=== PATIENT | male | born 1990 | race African-American/Black ===

== ENCOUNTER 2021-04-23 11:03 | Emergency (ER) | payer SELFPAY ==
[2021-04-23 11:23] VITALS: BP 143/93; PULSE 112; RESP 19; TEMP 36.8; O2SAT 100
[2021-04-23 12:13] VITALS: BP 134/95; PULSE 79; RESP 16; TEMP 36.6; O2SAT 100
--- NOTE | 2021-04-23 12:17 | PC.NURSE ---
Patient reports that he has had a small area of swelling to the right brow that has been present for at least a year but was small and did not cause any problems for the patient. severe increase in pain and swelling reported.
--- NOTE | 2021-04-23 12:49 | ED.SKABFB ---
HPI - Skin/Abscess/Foreign Bdy General Chief complaint: Skin/Abscess/Foreign Body Stated complaint: Wound Right Eye Time Seen by Provider: 04/23/21 12:07 Source: patient Mode of arrival: ambulatory Limitations: no limitations History of Present Illness HPI narrative: This is a 30-year-old male that presents to the emergency department for cyst over the right eyebrow present over the last year. Reports over the last couple of days the area has become painful, more swollen and red. He has not seen anybody for this yet. Denies fever, vision changes, redness of the eye, or purulent discharge from the eye. Related Data Allergies Allergy/AdvReac Type Severity Reaction Status Date / Time No Known Allergies Allergy Verified 04/23/21 11:26 Review of Systems Review of Systems: Narrative: CONSTITUTIONAL: Denies fever EYES: Denies visual changes, redness, or discharge. All systems reviewed & are unremarkable except as noted in HPI and below PMFSH Past Medical History Medical History (Updated 04/23/21 @ 13:50 by Krystina Roe PA-C) History of hypertension Social History Social History (Updated 04/23/21 @ 12:51 by Krystina Roe PA-C) Substance use: never Exam Narrative: Exam Narrative: GENERAL: Well-appearing, well-nourished, and in no acute distress. HEAD: Normocephalic, atraumatic. 2cm area of redness over the right eyebrow, with mobile cystic lesion that is tender to palpation EYES: PERRLA and EOMI. No conjunctival injection or abnormal discharge. No swelling of the eyelids ENT: Nares clear, no rhinorrhea or epistaxis. Mucous membranes moist. Oropharynx without tonsillar hypertrophy exudate or other lesions. Bilateral TMs pearly macdonald non-bulging NECK: Supple. No adenopathy or masses. CHEST: Clear to auscultation. No respiratory distress. No wheezes rales or rhonchi HEART: Regular rate and rhythm. No murmur heard. Normal peripheral pulses. EXTREMITIES: Normal range of motion. No edema. SKIN: Warm, dry, no rash. NEURO: No focal deficits. Alert and oriented x3. PSYCH: Normal mood and affect Course Vital Signs Vital signs: Vital Signs Temperature 98.2 F 04/23/21 11:23 Pulse Rate 112 H 04/23/21 11:23 Respiratory Rate 19 04/23/21 11:23 Blood Pressure 143/93 H 04/23/21 11:23 Pulse Oximetry 100 04/23/21 11:23 Temperature 97.9 F 04/23/21 12:13 Pulse Rate 79 04/23/21 12:13 Respiratory Rate 16 04/23/21 12:13 Blood Pressure 134/95 H 04/23/21 12:13 Pulse Oximetry 100 04/23/21 12:13 Procedures Abscess I/D face: Date of Incision: 04/23/21 Time of Incision: 13:49 Local Anesthetic: lidocaine 1% and with epi Amount of anesthesia used (mL): 2 Technique: incised with #11 blade Packing used?: none I&D Results: Pus, Blood and Other (Sebaceous material) MDM - Skin/Abscess/Foreign Bdy MDM Narrative Medical decision making narrative: Patient presents the emergency department for a cyst noted above the right eyebrow that has been present for a year. Over the last couple of days the area has become a little bit more swollen and painful. It is also red. He is afebrile and nontoxic-appearing. He did have a cystic lesion over the right eyebrow that I drained with mild surrounding redness. No erythema of the eyelid. No conjunctival injection or abnormal drainage. Seems to be isolated to around the eyebrow. Patient will be started on oral antibiotics. Was instructed to follow-up with plastic surgery for further care and probable cyst removal. He was given warnings to return to the ER Critical Care Time Critical Care Time Critical Care Time: No Discharge Plan Discharge Clinical Impression: Sebaceous cyst Patient Disposition: Home, Self-Care Condition: Stable Instructions: Cyst (ED) Additional Instructions: Return to the emergency department if you experience fever, worsening redness or swelling of your wound, vision changes, abnormal
[2021-04-23 14:34] VITALS: BP 140/90; PULSE 65; RESP 18; TEMP 36.8; O2SAT 100
== END 2021-04-23 14:34 | disposition home or self-care (01) ==
PROVIDERS: Emergency Provider Emergency Medicine
DX: L72.3 Sebaceous cyst (principal); I10 Essential (primary) hypertension
CPT/HCPCS: 10060; 99283